=== PATIENT | female | born 1965 | race Caucasian/White ===

== ENCOUNTER 2023-08-23 16:55 | Emergency (ER) | payer SELFPAY ==
[2023-08-23 16:59] VITALS: BP 133/83; PULSE 98; RESP 18; TEMP 36.7; O2SAT 98; BMI 21.2
--- NOTE | 2023-08-23 17:24 | XRR_ITS ---
PROCEDURE INFORMATION: Exam: XR Abdomen Exam date and time: 08/23/2023 5:26 PM Age: 57 years old Clinical indication: Abdominal pain; Patient HX: Rlq pain; Constipation; Additional info: Abd paipn TECHNIQUE: Imaging protocol: Radiologic exam of the abdomen. Views: Frontal supine view of the abdomen. 1 View. COMPARISON: No relevant prior studies available. FINDINGS: Gastrointestinal tract: There is a moderate amount of stool mostly in the descending colon. No impaction. No bowel dilation. No ileus or obstruction Bones/joints: Unremarkable. XR/XR KUB portable [id number] IMPRESSION: No acute findings. Moderate constipation.
--- NOTE | 2023-08-23 17:26 | W.ED.ABDPA2 ---
Documented by User: Janes Stern DO 08/24/23 08:50 HPI - Abdominal Pain General: Chief Complaint: Abdominal Pain Stated Complaint: sent by UC, possible appy Time Seen by Provider: 08/23/23 17:24 Source: patient Mode of arrival: ambulatory History of Present Illness: 57-year-old female presents emergency room complaining of right lower quadrant pain for the last 2 weeks. She has some mild dysuria at times. She also has noted that the symptoms are relieved by flatulence. No fever sweats or chills. Earlier in the process she had some dysuria as she took Azo which she says it seemed as resolved. She has noted that she has been somewhat constipated. MD elicited complaint: abdominal pain Pertinent past history: constipation and other (Abdominal pain) Onset (ago): week(s) (2) Location: RLQ Severity: mild Quality: cramping Radiation: none Exacerbating factors: nothing Relieving factors: other (Flatulence) Associated Symptoms: Reports bloating, constipation, GI cramping, excessive flatus, nausea and poor appetite; Denies chills, dysuria, fever(s), hematochezia, hematuria, hematemesis, melena and vomiting Review of Systems Const: Denies: fever(s) or chills Card: Denies: chest pain Resp: Denies: dyspnea GI: Reports: nausea, constipation, bloating, GI cramping and excessive flatus; Denies: abdominal pain, vomiting, hematemesis, hematochezia or melena : Denies: dysuria, urinary frequency, urinary urgency or hematuria Musc: Denies: neck pain or back pain Skin/Breast: Denies: pruritus Neuro: Denies: headache(s) Physical Exam Const: GENERAL APPEARANCE: cooperative and comfortable ORIENTATION/CONSCIOUSNESS: Yes awake, Yes oriented to person, Yes oriented to place and Yes oriented to time HENMT: COMMON NORMALS: normocephalic, atraumatic and hearing grossly normal bilaterally HEAD & SCALP: normocephalic and atraumatic Resp: COMMON NORMALS: normal respiratory effort, No retractions, No use of accessory muscles and clear to auscultation bilaterally AUSCULTATION: clear to auscultation bilaterally Cardio: COMMON NORMALS: regular rate, regular rhythm and No murmurs present (Cardio) RATE: regular rate RHYTHM: regular rhythm GI: COMMON NORMALS: No hepatosplenomegaly present AUSCULTATION: Yes normoactive bowel sounds PALPATION: Yes Tenderness to palpation present (GI) (Diffusely tender lower abdomen more prominent in the right lower quadrant ), No Guarding due to palpation present (GI) and Yes No hepatosplenomegaly present Extremity: COMMON NORMALS: normal to inspection, capillary refill normal, no clubbing, cyanosis or edema, no calf tenderness and no pedal edema Neuro: SENSORIUM/ORIENTATION: Yes oriented to person, Yes oriented to place and Yes oriented to time Skin: COMMON NORMALS: no rashes or lesions noted GENERAL SKIN EXAM: no rashes or lesions noted Course Vital Signs: Vital signs: Vital Signs Temperature 98.7 F 08/23/23 19:09 Pulse Rate 80 08/23/23 19:09 Respiratory Rate 15 08/23/23 19:09 Blood Pressure 146/85 08/23/23 19:09 Pulse Oximetry 90 08/23/23 19:09 Oxygen Delivery Me thod Room Air 08/23/23 19:09 MDM - Abdominal Pain Medical Decision Making Diffuse tenderness right lower quadrant no peritoneal signs. KUB shows large amount of retained stool and increased gas in the colon but no signs of bowel obstruction. However patient does have leukocytosis. CT abdomen pelvis ordered. CMP is pending UA did not show any definitive cystitis. Care signed out to Dr. Patterson at change of shift. See final notes for diagnosis and disposition. Lab Data 08/23/23 17:40 08/23/23 17:40 Labs/Radiology: Radiology Impressions KUB X-Ray 08/23/23 17:24 IMPRESSION: No acute findings. Moderate constipation. Abdomen/Pelvis CT 08/23/23 18:06 IMPRESSION: Large soft tissue density masslike lesion in the right pelvis at least partially composed of matted/conglomerate loops of small bowel with induration of the adjacent fat. Unremarkable appendix. Right ovary is not definitely visualized. Differential diagnosis for this appearance could include inflammatory bowel disease or tubo-ovarian abscess. Given the masslike appearance and non visualization of the right ovary, ovarian mass or torsion cannot be excluded. Pelvic ultrasound with Doppler is recommended to evaluate the right ovary and exclude torsion. Additional CT scan with IV and oral contrast is recommended to further evaluate the loops of bowel. ADDENDUM: 10/07/23 1927 THIS REPORT CONTAINS FINDINGS THAT MAY BE CRITICAL TO PATIENT CARE. The findings were verbally communicated via telephone conference with Dr. Patterson at 7:25 PM CDT on 08/23/2023. The findings were acknowledged and understood. Transvaginal US 08/23/23 19:25 IMPRESSION: 1. Incomplete examination as patient in severe pain and unable to tolerate examination. 2. Heterogeneous right adnexal region measuring up to 6.3 cm without significant internal vascularity, of unclear origin. This lesion abuts the uterus but does not definitely arise from the uterus. 3. Right ovary not visualized, unclear if the ovary is obscured by the above lesion or if the above lesion arises from the right ovary. Tubo-ovarian abscess or ovarian torsion can not be excluded as previously mentioned on the CT abdomen/pelvis report from earlier today. 4. Recommend repeat CT abdomen and pelvis with intravenous and oral contrast to better assess relationship of this lesion to the uterus and bowel. ADDENDUM: 08/23/232219 THIS REPORT CONTAINS FINDINGS THAT MAY BE CRITICAL TO PATIENT CARE. The findings were verbally communicated via telephone conference with SEAN Saucedo at 10:19 PM CDT on 08/23/2023. The findings were acknowledged and understood. Laboratory Results WBC 16.33 10^3/uL (3.29-11.43) H 08/23/23 17:40 RBC 4.23 10^6/uL (3.85-5.65) 08/23/23 17:40 Hgb 12.90 g/dL (11.27-16.99) 08/23/23 17:40 Hct 39.6 % (36-47) 08/23/23 17:40 MCV 93.6 fl (85-98) 08/23/23 17:40 MCH 30.5 pg (27-33) 08/23/23 17:40 MCHC 32.6 g/dL (30-55) 08/23/23 17:40 RDW 13.2 % (12.1-15.1) 08/23/23 17:40 Plt Count 478 10^3/cmm (157-399) H 08/23/23 17:40 MPV 9.3 fL (7.4-10.4) 08/23/23 17:40 Neut % (Auto) 80.0 % 08/23/23 17:40 Lymph % (Auto) 10.2 % 08/23/23 17:40 Ralls % (Auto) 7.7 % 08/23/23 17:40 Eos % (Auto) 0.8 % 08/23/23 17:40 Baso % (Auto) 0.4 % 08/23/23 17:40 Neut # (Auto) 13.09 10^3/uL (1.8-7.7) H 08/23/23 17:40 Lymph # (Auto) 1.7 10^3/uL (0.8-4.8) 08/23/23 17:40 Ralls # (Auto) 1.3 10^3/uL (0.2-0.9) H 08/23/23 17:40 Eos # (Auto) 0.1 10^3/uL (0.0-0.8) 08/23/23 17:40 Baso # (Auto) 0.1 10^3/uL (0.0-0.1) 08/23/23 17:40 Nucleated RBC % (auto) 0 % 08/23/23 17:40 Nucleated RBCs # 0.0 /100WBC 08/23/23 17:40 Sodium 137 mmol/L (136-145) 08/23/23 17:40 Potassium 4.2 mmol/L (3.5-5.1) 08/23/23 17:40 Chloride 96 mmol/L (98-107) L 08/23/23 17:40 Carbon Dioxide 29 mmol/L (22-29) 08/23/23 17:40 Anion Gap 16.2 (5-19) 08/23/23 17:40 BUN 11 mg/dL (6-20) 08/23/23 17:40 Creatinine 0.6 mg/dL (0.5-0.9) 08/23/23 17:40 GFR Calculation 103.4 mL/min (90-130) 08/23/23 17:40 Glucose 111 mg/dL (65-115) 08/23/23 17:40 Calculated Osmolality 284 mOsm/kg (285-295) L 08/23/23 17:40 Calcium 9.5 mg/dL (8.5-10.5) 08/23/23 17:40 Total Bilirubin 0.3 mg/dL (0.15-1.2) 08/23/23 17:40 AST 25 U/L (0-32) 08/23/23 17:40 ALT 47 U/L (0-33) H 08/23/23 17:40 Alkaline Phosphatase 153 U/L (35-105) H 08/23/23 17:40 Total Protein 7.6 g/dL (6.6-8.7) 08/23/23 17:40 Albumin 3.8 g/dL (3.5-5.2) 08/23/23 17:40 Globulin 3.8 g/dL (1.3-4.6) 08/23/23 17:40 Urine Color Yellow (Yellow) 08/23/23 18:10 Urine Appearance Clear (CLEAR) 08/23/23 18:10 Urine pH 7 (5-7) 08/23/23 18:10 Ur Specific [place] 1.015 (1.005-1.030) 08/23/23 18:10 Urine Protein Neg (Negative) 08/23/23 18:10 Urine Glucose (UA) Norm (Normal) 08/23/23 18:10 Urine Ketones Negative (Negative) 08/23/23 18:10 Urine Blood Neg (Negative) 08/23/23 18:10 Urine Nitrate Negative (Negative) 08/23/23 18:10 Urine Bilirubin Neg (Negative) 08/23/23 18:10 Urine Urobilinogen 1 mg/dL (Negative) H 08/23/23 18:10 Ur Leukocyte Esterase Trace (Negative) H 08/23/23 18:10 Urine RBC None /hpf (0-2) 08/23/23 18:10 Urine WBC 0-4 /hpf (0-5) H 08/23/23 18:10 Ur Squamous Epith Cells 0-4 /hpf (0-5) H 08/23/23 18:10 Amorphous Sediment 3+ /hpf 08/23/23 18:10 Urine Bacteria None /hpf (NONE) 08/23/23 18:10 Discharge Plan Discharge Patient Disposition: Left Against Medical Advice Clinical Impression: Abdominal or pelvic swelling, mass, or lump, right lower quadrant Condition: Stable Prescriptions: No Action losartan 25 mg tablet 25 mg PO QAM zinc acetate 50 mg (zinc) Capsule 50 mg PO DAILY levothyroxine 100 mcg tablet 100 mcg PO QAM Vitamin C 500 mg Tablet 500 mg PO DAILY simvastatin 20 mg tablet 20 mg PO QAM hydroxyzine HCl 25 mg tablet 25 - 50 mg PO Q6H PRN (Reason: Itching) BC Pain Relief 845-65 mg Powder In Packet 1 ea PO TID PRN (Reason: Pain) Coding Level of Care Code 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 KUB shows large amount of retained stool and increased gas in the colon but no signs of bowel obstruction. However patient does have leukocytosis. CT abdomen pelvis ordered. CMP is pending UA did not show any definitive cystitis. Care signed out to Dr. Patterson at change of shift. See final notes for diagnosis and disposition. Patient checked out to me by Dr. Stern at shift change. The patient had refused IV, so CT was done without contrast. It shows a large soft tissue density mass in the right pelvis. Because IV contrast was not used, nor oral contrast, difficult to discern whether this is all small bowel or involves the ovary. Ultrasound of the pelvis was suggested. Ultrasound of the pelvis revealed right adnexal region 6.3 cm mass, which could be small bowel, but the right ovary is not visualized possibly due to being obscured by the mass. I went to speak with the patient about an IV for both pain medication, and IV contrast, told her the gravity of her situation, and that she would likely need admission and surgical consult after a CT with oral and IV contrast was completed. She is concerned about her dog who is diabetic, and under the care of her mother who does not know how to administer insulin. She elected to sign out AMA. She is awake, alert, and aware of the consequences of going home without completing her treatment. She states that she will return to the emergency department after taking care of her dog for further treatment. Lab Data 08/23/23 17:40 08/23/23 17:40 Labs/Radiology: Radiology Impressions KUB X-Ray 08/23/23 17:24 IMPRESSION: No acute findings. Moderate constipation. Abdomen/Pelvis CT 08/23/23 18:06 IMPRESSION: Large soft tissue density masslike lesion in the right pelvis at least partially composed of matted/conglomerate loops of small bowel with induration of the adjacent fat. Unremarkable appendix. Right ovary is not definitely visualized. Differential diagnosis for this appearance could include inflammatory bowel disease or tubo-ovarian abscess. Given the masslike appearance and non visualization of the right ovary, ovarian mass or torsion cannot be excluded. Pelvic ultrasound with Doppler is recommended to evaluate the right ovary and exclude torsion. Additional CT scan with IV and oral contrast is recommended to further evaluate the loops of bowel. ADDENDUM: 08/23/231926 THIS REPORT CONTAINS FINDINGS THAT MAY BE CRITICAL TO PATIENT CARE. The findings were verbally communicated via telephone conference with Dr. Patterson at 7:25 PM CDT on 08/23/2023. The findings were acknowledged and understood. Transvaginal US 08/23/23 19:25 IMPRESSION: 1. Incomplete examination as patient in severe pain and unable to tolerate examination. 2. Heterogeneous right adnexal region measuring up to 6.3 cm without significant internal vascularity, of unclear origin. This lesion abuts the uterus but does not definitely arise from the uterus. 3. Right ovary not visualized, unclear if the ovary is obscured by the above lesion or if the above lesion arises from the right ovary. Tubo-ovarian abscess or ovarian torsion can not be excluded as previously mentioned on the CT abdomen/pelvis report from earlier today. 4. Recommend repeat CT abdomen and pelvis with intravenous and oral contrast to better assess relationship of this lesion to the uterus and bowel. ADDENDUM: 08/23/230 THIS REPORT CONTAINS FINDINGS THAT MAY BE CRITICAL TO PATIENT CARE. The findings were verbally communicated via telephone conference with SEAN Saucedo at 10:19 PM CDT on 08/23/2023. The findings were acknowledged and understood. Laboratory Results WBC 16.33 10^3/uL (3.29-11.43) H 08/23/23 17:40 RBC 4.23 10^6/uL (3.85-5.65) 08/23/23 17:40 Hgb 12.90 g/dL (11.27-16.99) 08/23/23 17:40 Hct 39.6 % (36-47) 08/23/23 17:40 MCV 93.6 fl (85-98) 08/23/23 17:40 MCH 30.5 pg (27-33) 08/23/23 17:40 MCHC 32.6 g/dL (30-55) 08/23/23 17:40 RDW 13.2 % (12.1-15.1) 08/23/23 17:40 Plt Count 478 10^3/cmm (157-399) H 08/23/23 17:40 MPV 9.3 fL (7.4-10.4) 08/23/23 17:40 Neut % (Auto) 80.0 % 08/23/23 17:40 Lymph % (Auto) 10.2 % 08/23/23 17:40 Ralls % (Auto) 7.7 % 08/23/23 17:40 Eos % (Auto) 0.8 % 08/23/23 17:40 Baso % (Auto) 0.4 % 08/23/23 17:40 Neut # (Auto) 13.09 10^3/uL (1.8-7.7) H 08/23/23 17:40 Lymph # (Auto) 1.7 10^3/uL (0.8-4.8) 08/23/23 17:40 Ralls # (Auto) 1.3 10^3/uL (0.2-0.9) H 08/23/23 17:40 Eos # (Auto) 0.1 10^3/uL (0.0-0.8) 08/23/23 17:40 Baso # (Auto) 0.1 10^3/uL (0.0-0.1) 08/23/23 17:40 Nucleated RBC % (auto) 0 % 08/23/23 17:40 Nucleated RBCs # 0.0 /100WBC 08/23/23 17:40 Sodium 137 mmol/L (136-145) 08/23/23 17:40 Potassium 4.2 mmol/L (3.5-5.1) 08/23/23 17:40 Chloride 96 mmol/L (98-107) L 08/23/23 17:40 Carbon Dioxide 29 mmol/L (22-29) 08/23/23 17:40 Anion Gap 16.2 (5-19) 08/23/23 17:40 BUN 11 mg/dL (6-20) 08/23/23 17:40 Creatinine 0.6 mg/dL (0.5-0.9) 08/23/23 17:40 GFR Calculation 103.4 mL/min (90-130) 08/23/23 17:40 Glucose 111 mg/dL (65-115) 08/23/23 17:40 Calculated Osmolality 284 mOsm/kg (285-295) L 08/23/23 17:40 Calcium 9.5 mg/dL (8.5-10.5) 08/23/23 17:40 Total Bilirubin 0.3 mg/dL (0.15-1.2) 08/23/23 17:40 AST 25 U/L (0-32) 08/23/23 17:40 ALT 47 U/L (0-33) H 08/23/23 17:40 Alkaline Phosphatase 153 U/L (35-105) H 08/23/23 17:40 Total Protein 7.6 g/dL (6.6-8.7) 08/23/23 17:40 Albumin 3.8 g/dL (3.5-5.2) 08/23/23 17:40 Globulin 3.8 g/dL (1.3-4.6) 08/23/23 17:40 Urine Color Yellow (Yellow) 08/23/23 18:10 Urine Appearance Clear (CLEAR) 08/23/23 18:10 Urine pH 7 (5-7) 08/23/23 18:10 Ur Specific [place] 1.015 (1.005-1.030) 08/23/23 18:10 Urine Protein Neg (Negative) 08/23/23 18:10 Urine Glucose (UA) Norm (Normal) 08/23/23 18:10 Urine Ketones Negative (Negative) 08/23/23 18:10 Urine Blood Neg (Negative) 08/23/23 18:10 Urine Nitrate Negative (Negative) 08/23/23 18:10 Urine Bilirubin Neg (Negative) 08/23/23 18:10 Urine Urobilinogen 1 mg/dL (Negative) H 08/23/23 18:10 Ur Leukocyte Esterase Trace (Negative) H 08/23/23 18:10 Urine RBC None /hpf (0-2) 08/23/23 18:10 Urine WBC 0-4 /hpf (0-5) H 08/23/23 18:10 Ur Squamous Epith Cells 0-4 /hpf (0-5) H 08/23/23 18:10 Amorphous Sediment 3+ /hpf 08/23/23 18:10 Urine Bacteria None /hpf (NONE) 08/23/23 18:10 All radiology interpretation(s) finalized by discharge Discharge Plan Discharge Patient Disposition: Left Against Medical Advice Clinical Impression: Abdominal or pelvic swelling, mass, or lump, right lower quadrant Condition: Stable Prescriptions: No Action losartan 25 mg tablet 25 mg PO QAM zinc acetate 50 mg (zinc) Capsule 50 mg PO DAILY levothyroxine 100 mcg tablet 100 mcg PO QAM Vitamin C 500 mg Tablet 500 mg PO DAILY simvastatin 20 mg tablet 20 mg PO QAM hydroxyzine HCl 25 mg tablet 25 - 50 mg PO Q6H PRN (Reason: Itching) BC Pain Relief 845-65 mg Powder In Packet 1 ea PO TID PRN (Reason: Pain) Coding Level of Care Code ED Treating Plant Supervisor for Chg Moses
[2023-08-23 17:46] LABS: Basophils # 0.1 10^3/uL (0.0-0.1); Basophils % 0.4 %; Eosinophils # 0.1 10^3/uL (0.0-0.8); Eosinophils % 0.8 %; Hematocrit 39.6 % (36-47); Lymphocytes # 1.7 10^3/uL (0.8-4.8); Lymphocytes % 10.2 %; Mean Corpuscular HGB Conc 32.6 g/dL (30-55); Mean Corpuscular Hemoglobin 30.5 pg (27-33); Mean Corpuscular Volume 93.6 fl (85-98); Mean Platelet Volume 9.3 fL (7.4-10.4); Monocytes # 1.3 10^3/uL (0.2-0.9); Monocytes % 7.7 %; Neutrophils # 13.09 10^3/uL (1.8-7.7); Nucleated Red Blood Cells % 0 %; Platelet Count 478 10^3/cmm (157-399); Red Blood Count 4.23 10^6/uL (3.85-5.65); Red Cell Distribution Width 13.2 % (12.1-15.1); White Blood Count 16.33 10^3/uL (3.29-11.43)
[2023-08-23 18:02] VITALS: BP 154/92; PULSE 86; O2SAT 96
--- NOTE | 2023-08-23 18:06 | CTR_ITS ---
PROCEDURE INFORMATION: Exam: CT Abdomen And Pelvis Without Contrast Exam date and time: 08/23/2023 6:42 PM Age: 57 years old Clinical indication: Abdominal pain; Generalized; Additional info: Abdominal pain/leukocytosis TECHNIQUE: Imaging protocol: Computed tomography of the abdomen and pelvis without contrast. Radiation optimization: All CT scans at this facility use at least one of these dose optimization techniques: automated exposure control; mA and/or kV adjustment per patient size (includes targeted exams where dose is matched to clinical indication); or iterative reconstruction. REPORTING DATA: Count of CT and Cardiac NM exams in prior 12 months: This patient has received 0 known CTs and 0 known cardiac nuclear medicine studies in the 12 months prior to the current study. COMPARISON: CR (ABDOMEN, ) 08/23/2023 5:26 PM RADIATION DOSE METRICS: Total DLP (mGy-cm): 385.17 FINDINGS: Liver: Unremarkable.No mass. Gallbladder and bile ducts: Normal. No calcified stones. No ductal dilation. Pancreas: The pancreas is normal. Spleen: The spleen is normal. Adrenal glands: The adrenal glands are normal. Kidneys and ureters: There is no evidence of hydronephrosis. There is no evidence of renal calcifications. Stomach and bowel: There is no evidence of intestinal perforation or obstruction. Moderate diverticulosis is present in the distal colon. There is no evidence of colitis/diverticulitis. There is moderately excessive colonic stool content. Some of this appearance does appear to be due to matted loops of bowel containing a few air bubbles the right ovary cannot be from this mass. Appendix: A normal appendix is identified. Intraperitoneal space: There is a mass like appearance in the right lower abdomen/pelvis measuring 10.0 x 7.0 x 6.3 cm with haziness/induration of the adjacent mesenteric fat. Vasculature: There are numerous benign phleboliths in the pelvis. Lymph nodes: Unremarkable.No enlarged lymph nodes. Urinary bladder: The bladder is normal. Reproductive: The uterus and left adnexa are unremarkable. There is a trace amount of fluid in the right adnexa and pelvis. Bones/joints: Unremarkable. No acute fracture. Soft tissues: There is a fat-containing umbilical hernia. CT/CT abdomen pelvis wo con [id number] IMPRESSION: Large soft tissue density masslike lesion in the right pelvis at least partially composed of matted/conglomerate loops of small bowel with induration of the adjacent fat. Unremarkable appendix. Right ovary is not definitely visualized. Differential diagnosis for this appearance could include inflammatory bowel disease or tubo-ovarian abscess. Given the masslike appearance and non visualization of the right ovary, ovarian mass or torsion cannot be excluded. Pelvic ultrasound with Doppler is recommended to evaluate the right ovary and exclude torsion. Additional CT scan with IV and oral contrast is recommended to further evaluate the loops of bowel.
[2023-08-23 18:08] LABS: Alanine Aminotransferase 47 U/L (0-33); Albumin Level 3.8 g/dL (3.5-5.2); Alkaline Phosphatase 153 U/L (35-105); Anion Gap 16.2 (5-19); Aspartate Amino Transferase 25 U/L (0-32); Blood Urea Nitrogen 11 mg/dL (6-20); Calcium 9.5 mg/dL (8.5-10.5); Carbon Dioxide 29 mmol/L (22-29); Chloride 96 mmol/L (98-107); Globulin 3.8 g/dL (1.3-4.6); Glomerular Filtration Rate 103.4 mL/min (90-130); Glucose 111 mg/dL (65-115); Osmolality Calculated 284 mOsm/kg (285-295); Potassium 4.2 mmol/L (3.5-5.1); Sodium 137 mmol/L (136-145); Total Bilirubin 0.3 mg/dL (0.15-1.2); Total Protein 7.6 g/dL (6.6-8.7)
[2023-08-23 18:55] VITALS: BP 154/92; PULSE 91; O2SAT 96
--- NOTE | 2023-08-23 18:55 | PC.NURSE ---
Report taken from LIZBETH Barros at this time.
[2023-08-23 19:02] LABS: Urine Appearance Clear (CLEAR); Urine Color Yellow (Yellow)
[2023-08-23 19:03] LABS: Add Urine Culture? No; Add Urine Microscopic? YES; Amorphous Sediment Urine 3+ /hpf; Bilirubin Urine Neg (Negative); Blood Urine Neg (Negative); Glucose Urine UA Norm (Normal); Ketones Urine Negative (Negative); Leukocyte Esterase Urine Trace (Negative); Nitrate Urine Negative (Negative); Protein Urine Neg (Negative); Specific Gravity, Urine 1.015 (1.005-1.030); Squamous Epithelial Cell Urine 0-4 /hpf (0-5); Urobilinogen Urine 1 mg/dL (Negative); WBC Urine 0-4 /hpf (0-5); pH Urine 7 (5-7)
[2023-08-23 19:09] VITALS: BP 146/85; PULSE 80; RESP 15; TEMP 37.1; O2SAT 90
--- NOTE | 2023-08-23 19:25 | USR_ITS ---
PROCEDURE INFORMATION: Exam: US Pelvis, Transvaginal Exam date and time: 08/23/2023 8:42 PM Age: 57 years old Clinical indication: Pelvic pain; Additional info: Rlq pain. TECHNIQUE: Imaging protocol: Real-time transvaginal pelvic ultrasound with image documentation. Transvaginal imaging was used for better evaluation of the endometrium, adnexa, and/or cervix. COMPARISON: CT abdomen pelvis wo con [id number] 08/23/2023 6:42 PM FINDINGS: Uterus: Trace fluid in the endometrial canal. Right ovary/adnexa: Heterogeneous right adnexal region measuring 6.3 x 5 x 4.2 cm without significant internal vascularity. Right ovary not visualized. Left ovary/adnexa: Not examined Intraperitoneal space: Not fully examined. US/US transvaginal [id number] IMPRESSION: 1. Incomplete examination as patient in severe pain and unable to tolerate examination. 2. Heterogeneous right adnexal region measuring up to 6.3 cm without significant internal vascularity, of unclear origin. This lesion abuts the uterus but does not definitely arise from the uterus. 3. Right ovary not visualized, unclear if the ovary is obscured by the above lesion or if the above lesion arises from the right ovary. Tubo-ovarian abscess or ovarian torsion can not be excluded as previously mentioned on the CT abdomen/pelvis report from earlier today. 4. Recommend repeat CT abdomen and pelvis with intravenous and oral contrast to better assess relationship of this lesion to the uterus and bowel.
[2023-08-23] MEDS: acetaminophen 500 mg Tablet 1000 MG PO (20:27)
--- NOTE | 2023-08-23 20:34 | PC.NURSE ---
Patient had refused IV and IV pain meds. Stated that she wanted Tylenol PO instead. Tylenol was listed as an allergy, which patient verified that was incorrect. Dr Patterson was notified and gave this nurse verbal orders to put in 1000mg Tylenol PO once. Orders were put in.
--- NOTE | 2023-08-23 22:18 | PC.NURSE ---
Patient signed out AMA, signed paperwork. Dr Patterson notified. Patient states that she has to leave to give her dog insulin, as her mother is unable to administer insulin. Patient plans on returning to ER once insulin has been administered to her dog, and plans to return with the agreement that she will get an IV in order to perform more tests and labs. Patient was agreeable and Dr Patterson was informed.
== END 2023-08-23 23:47 | disposition left against medical advice (07) ==
PROVIDERS: Family Medicine; Emergency Provider Emergency Medicine
DX: R10.31 Right lower quadrant pain (principal); R19.00 Intra-abdominal and pelvic swelling, mass and lump, unspecified site; Z53.21 Procedure and treatment not carried out due to patient leaving prior to being seen by health care provider
CPT/HCPCS: 36415; 74018; 74176; 76830; 80053; 81000; 81001; 85025; 87086; 99285

== ENCOUNTER 2023-08-24 07:41 | Emergency (ER) | payer SELFPAY ==
[2023-08-24] VITALS (8 sets, daily range): BP systolic 110–144; BP diastolic 70–91; PULSE 78–97; RESP 16–18; TEMP 36.4–36.6; O2SAT 97–98; BMI 21.2
--- NOTE | 2023-08-24 07:57 | CTR_ITS ---
PROCEDURE INFORMATION: Exam: CT Abdomen And Pelvis With Contrast Exam date and time: 08/24/2023 8:41 AM Age: 57 years old Clinical indication: Right lower quadrant abdominal pain. TECHNIQUE: Imaging protocol: Computed tomography of the abdomen and pelvis with contrast. Radiation optimization: All CT scans at this facility use at least one of these dose optimization techniques: automated exposure control; mA and/or kV adjustment per patient size (includes targeted exams where dose is matched to clinical indication); or iterative reconstruction. Contrast material: OMNI 350; Contrast volume: 100 ml; Contrast route: INTRAVENOUS (IV); REPORTING DATA: Count of CT and Cardiac NM exams in prior 12 months: This patient has received [address] and 0 known cardiac nuclear medicine studies in the 12 months prior to the current study. COMPARISON: CT abdomen pelvis wo con [id number] 08/23/2023 6:42 PM RADIATION DOSE METRICS: Total DLP (mGy-cm): 431.09 FINDINGS: Lungs: Fissural micronodule on the right measuring 2.9 mm (image 1). Pulmonary micronodule in the right middle lobe measuring 2 mm (image 8). Solid pulmonary nodule in the right lower lobe measuring 3.2 mm (image 7). Mild scarring or atelectasis at the lung bases. Coronary arteries: Coronary arterial calcifications are seen. Diaphragm: No hiatal hernia. Liver: The liver is enlarged measuring 20.1 cm. Gallbladder and bile ducts: The gallbladder is unremarkable. Pancreas: The pancreas is unremarkable. Spleen: The spleen is unremarkable. Adrenal glands: The adrenal glands are unremarkable. Kidneys and ureters: Subcentimeter renal hypodensities are too small to accurately characterize and require no follow-up. No hydronephrosis. Stomach and bowel: The stomach and small bowel are unremarkable. Colonic diverticulosis is noted. There is a multiseptated structure in the pelvis that appears to arise from the sigmoid colon. This structure contains gas and fluid and measures 6.9 x 9.0 x 7.1 cm. There is wall thickening of the adjacent colon, and there is edema adjacent to the structure. Considerations include colitis/diverticulitis with intramural abscess. This could reflect an adnexal mass invading the colon with associated fistula. A giant diverticulum/diverticulitis is a consideration. Appendix: The appendix is not identified. Intraperitoneal space: No free intraperitoneal air is seen. Vasculature: No abdominal aortic aneurysm. Lymph nodes: No retroperitoneal lymphadenopathy. Urinary bladder: The bladder is largely decompressed. Reproductive: The uterus is grossly unremarkable. Bones/joints: No acute fracture is seen. Soft tissues: Small fat containing umbilical hernia. CT/CT abdomen pelvis w con* [id number] IMPRESSION: 1. Multiseptated structure in the pelvis that appears to arise from the sigmoid colon. This structure contains gas and fluid and measures 6.9 x 9.0 x 7.1 cm. There is wall thickening of the adjacent colon, and there is edema adjacent to the structure. Considerations include colitis/diverticulitis with intramural abscess. This could reflect an adnexal mass invading the colon with associated fistula. A giant diverticulum/diverticulitis is a consideration. No perforation. 2. Pulmonary nodules measuring up to 3.2 mm. As per Fleischner Society 2017 guidelines for follow-up and management of pulmonary nodules: For patients at low risk (minimal or absent history of smoking and of other known risk factors), no routine follow-up. For patient at high risk (history of smoking or of other known risk factors), recommend optional CT at 12 months. 3. Hepatomegaly. COMMENTS: Consistent with the [employer]'s Incidental Findings Committee white paper (J Am Juana Radiol 2018): Any incidental renal lesion less than 1 cm or classified as too small to characterize, or any incidental cystic renal lesion characterized as simple-appearing, is likely benign. No follow-up imaging is recommended for these lesions per consensus recommendations based on imaging criteria.
[2023-08-24 08:20] LABS: Basophils # 0.1 10^3/uL (0.0-0.1); Basophils % 0.4 %; Eosinophils # 0.2 10^3/uL (0.0-0.8); Hematocrit 38.3 % (36-47); Lymphocytes # 1.2 10^3/uL (0.8-4.8); Lymphocytes % 6.4 %; Mean Corpuscular HGB Conc 32.4 g/dL (30-55); Mean Corpuscular Hemoglobin 30.8 pg (27-33); Mean Platelet Volume 9.3 fL (7.4-10.4); Monocytes % 5.4 %; Neutrophils # 15.63 10^3/uL (1.8-7.7); Neutrophils % 86.1 %; Nucleated Red Blood Cells % 0 %; Platelet Count 368 10^3/cmm (157-399); Red Blood Count 4.03 10^6/uL (3.85-5.65); Red Cell Distribution Width 13.3 % (12.1-15.1); White Blood Count 18.17 10^3/uL (3.29-11.43)
--- NOTE | 2023-08-24 08:22 | ED_ITS ---
HPI - Abdominal Pain General: Chief Complaint: Abdominal Pain Stated Complaint: low abd pain Time Seen by Provider: 08/24/23 07:44 Source: patient Mode of arrival: ambulatory History of Present Illness: 57-year-old female presents emergency room complaining of abdominal pain and cramping. She has had this for several weeks and seen the patient last night and had handed her off to Dr. Patterson. She was noted to have leukocytosis and had significant pain in the right lower quadrant. Initially we had ordered a KUB did show some constipation and increased gas. Given the leukocytosis CT was ordered CT showed a mass in the right lower quadrant but it was without contrast difficult to isolate if it was ovarian or from the small bowel. Dr. Patterson had tried to encourage the patient to allow further work-up including a CT with co ntrast after she had declined a transvaginal ultrasound and of the pelvic transabdominal ultrasound did not isolate the source of the mass. Patient refused and left she felt she had other issues she needed to attend to and said she would return later. She returns now this morning her symptoms for the most part remain unchanged she still having difficulty with bowel and bladder she has not had any fevers still complaining of intermittent pain in the right lower quadrant. MD elicited complaint: abdominal pain Pertinent past history: other (Right lower quadrant mass see previous imaging studies) Onset (ago): week(s) (3) Pain Consistency: constant Location: RLQ Severity: moderate Quality: cramping Radiation: none Exacerbating factors: nothing Relieving factors: other (Flatulence) Associated Symptoms: Reports anorexia, bloating, change in bowel habits, constipation, GI cramping, excessive flatus, nausea and poor appetite; Denies belching, change in stool character, chills, coffee ground emesis, diarrhea, dyspepsia, dysuria, fever(s), heartburn, hematochezia, hematuria, hematemesis, fecal incontinence, loose stools, melena, syncope, vomiting and other Review of Systems Const: Denies: fever(s) or chills Card: Denies: syncope Resp: Denies: dyspnea GI: Reports: nausea, constipation, bloating, GI cramping, excessive flatus and change in bowel habits; Denies: vomiting, hematemesis, coffee ground emesis, heartburn, diarrhea, belching, fecal incontinence, change in stool character, hematochezia, melena or other : Denies: dysuria or hematuria Musc: Denies: neck pain or back pain Skin/Breast: Denies: pruritus Neuro: Denies: headache(s) Physical Exam Const: GENERAL APPEARANCE: cooperative and comfortable ORIENTATION/CONSCIOUSNESS: Yes awake, Yes oriented to person, Yes oriented to place and Yes oriented to time HENMT: COMMON NORMALS: normocephalic, atraumatic and hearing grossly normal bilaterally HEAD & SCALP: normocephalic and atraumatic Resp: COMMON NORMALS: normal respiratory effort, No retractions, No use of accessory muscles and clear to auscultation bilaterally AUSCULTATION: clear to auscultation bilaterally Cardio: COMMON NORMALS: regular rate, regular rhythm and No murmurs present (Cardio) RATE: regular rate RHYTHM: regular rhythm GI: COMMON NORMALS: No hepatosplenomegaly present AUSCULTATION: Yes normoactive bowel sounds PALPATION: Yes Tenderness to palpation present (GI) Details: RLQ, No Guarding due to palpation present (GI) and Yes No hepatosplenomegaly present Extremity: COMMON NORMALS: normal to inspection, capillary refill normal, no clubbing, cyanosis or edema, no calf tenderness and no pedal edema Neuro: SENSORIUM/ORIENTATION: Yes oriented to person, Yes oriented to place and Yes oriented to time Skin: COMMON NORMALS: no rashes or lesions noted GENERAL SKIN EXAM: no rashes or lesions noted Course Vital Signs: Vital signs: Vital Signs Temperature 98 F 08/24/23 10:00 Pulse Rate 79 08/24/23 11:30 Respiratory Rate 18 08/24/23 10:00 Blood Pressure 129/70 08/24/23 12:00 Pulse Oximetry 97 08/24/23 10:00 Oxygen Delivery Me thod Room Air 08/24/23 10:00 MDM - Abdominal Pain Medical Decision Making CT with contrast on there is still some question whether or not this is an ovarian mass that is visualized to the sigmoid colon versus sigmoid colon abscess abutting the right ovary. I asked Dr. Ovalles on-call for gynecology and Dr. Wing on-call for general surgery to evaluate the patient. After evaluating the patient's images and conferring they recommend transfer. Patient may need colorectal surgery and will likely need gynecologic oncology. Dr. Wing said it may potentially be treatable with interventional radiology with a drain. Reviewed with the patient she agrees to transfer we will transfer to [facility] they have excepted as a direct admission to the hospitalist service. Medical Records I reviewed the patient's medical records. Lab Data I reviewed the patient's lab results. 08/24/23 08:10 08/24/23 08:10 Labs/Radiology: Radiology Impressions Abdomen/Pelvis CT 08/24/23 07:57 IMPRESSION: 1. Multiseptated structure in the pelvis that appears to arise from the sigmoid colon. This structure contains gas and fluid and measures 6.9 x 9.0 x 7.1 cm. There is wall thickening of the adjacent colon, and there is edema adjacent to the structure. Considerations include colitis/diverticulitis with intramural abscess. This could reflect an adnexal mass invading the colon with associated fistula. A giant diverticulum/diverticulitis is a consideration. No perforation. 2. Pulmonary nodules measuring up to 3.2 mm. As per Fleischner Society 2017 guidelines for follow-up and management of pulmonary nodules: For patients at low risk (minimal or absent history of smoking and of other known risk factors), no routine follow-up. For patient at high risk (history of smoking or of other known risk factors), recommend optional CT at 12 months. 3. Hepatomegaly. COMMENTS: Consistent with the [employer]'s Incidental Findings Committee white paper (J Am Juana Radiol 2018): Any incidental renal lesion less than 1 cm or classified as too small to characterize, or any incidental cystic renal lesion characterized as simple-appearing, is likely benign. No follow-up imaging is recommended for these lesions per consensus recommendations based on imaging criteria. ADDENDUM: 08/24/23923 Findings relayed to CLIFFORD FRAGOSO who confirmed receipt of report at 08/24/2023 9:22 AM CDT. Laboratory Results WBC 18.17 10^3/uL (3.29-11.43) H 08/24/23 08:10 RBC 4.03 10^6/uL (3.85-5.65) 08/24/23 08:10 Hgb 12.40 g/dL (11.27-16.99) 08/24/23 08:10 Hct 38.3 % (36-47) 08/24/23 08:10 MCV 95.0 fl (85-98) 08/24/23 08:10 MCH 30.8 pg (27-33) 08/24/23 08:10 MCHC 32.4 g/dL (30-55) 08/24/23 08:10 RDW 13.3 % (12.1-15.1) 08/24/23 08:10 Plt Count 368 10^3/cmm (157-399) 08/24/23 08:10 MPV 9.3 fL (7.4-10.4) 08/24/23 08:10 Neut % (Auto) 86.1 % 08/24/23 08:10 Lymph % (Auto) 6.4 % 08/24/23 08:10 [place] % (Auto) 5.4 % 08/24/23 08:10 Eos % (Auto) 1.0 % 08/24/23 08:10 Baso % (Auto) 0.4 % 08/24/23 08:10 Neut # (Auto) 15.63 10^3/uL (1.8-7.7) H 08/24/23 08:10 Lymph # (Auto) 1.2 10^3/uL (0.8-4.8) 08/24/23 08:10 [place] # (Auto) 1.0 10^3/uL (0.2-0.9) H 08/24/23 08:10 Eos # (Auto) 0.2 10^3/uL (0.0-0.8) 08/24/23 08:10 Baso # (Auto) 0.1 10^3/uL (0.0-0.1) 08/24/23 08:10 Nucleated RBC % (auto) 0 % 08/24/23 08:10 Nucleated RBCs # 0.0 /100WBC 08/24/23 08:10 Sodium 137 mmol/L (136-145) 08/24/23 08:10 Potassium 3.5 mmol/L (3.5-5.1) 08/24/23 08:10 Chloride 101 mmol/L (98-107) 08/24/23 08:10 Carbon Dioxide 25 mmol/L (22-29) 08/24/23 08:10 Anion Gap 14.5 (5-19) 08/24/23 08:10 BUN 13 mg/dL (6-20) 08/24/23 08:10 Creatinine 0.7 mg/dL (0.5-0.9) 08/24/23 08:10 GFR Calculation 86.6 mL/min (90-130) L 08/24/23 08:10 Glucose 163 mg/dL (65-115) H 08/24/23 08:10 Calculated Osmolality 288 mOsm/kg (285-295) 08/24/23 08:10 Calcium 8.9 mg/dL (8.5-10.5) 08/24/23 08:10 Total Bilirubin 0.2 mg/dL (0.15-1.2) 08/24/23 08:10 AST 31 U/L (0-32) 08/24/23 08:10 ALT 46 U/L (0-33) H 08/24/23 08:10 Alkaline Phosphatase 157 U/L (35-105) H 08/24/23 08:10 Total Protein 7.0 g/dL (6.6-8.7) 08/24/23 08:10 Albumin 3.1 g/dL (3.5-5.2) L 08/24/23 08:10 Globulin 3.9 g/dL (1.3-4.6) 08/24/23 08:10 All radiology interpretation(s) finalized by discharge Discharge Plan Discharge Patient Disposition: Xfer Short-Term Hosp Clinical Impression: Pelvic abscess in female Condition: Stable Prescriptions: No Action losartan 25 mg tablet 25 mg PO QAM zinc acetate 50 mg (zinc) Capsule 50 mg PO DAILY levothyroxine 100 mcg tablet 100 mcg PO QAM Vitamin C 500 mg Tablet 500 mg PO DAILY simvastatin 20 mg tablet 20 mg PO QAM hydroxyzine HCl 25 mg tablet 25 - 50 mg PO Q6H PRN (Reason: Itching) BC Pain Relief 845-65 mg Powder In Packet 1 ea PO TID PRN (Reason: Pain) Referrals: Mauro Christine, TERRITORY OUTSIDE SALES MANAGER-C [Primary Care Provider] - Coding Level of Care Code ED Respiratory Scientist for Aminta Lopes
[2023-08-24 08:41] LABS: Alanine Aminotransferase 46 U/L (0-33); Albumin Level 3.1 g/dL (3.5-5.2); Alkaline Phosphatase 157 U/L (35-105); Anion Gap 14.5 (5-19); Aspartate Amino Transferase 31 U/L (0-32); Blood Urea Nitrogen 13 mg/dL (6-20); Calcium 8.9 mg/dL (8.5-10.5); Carbon Dioxide 25 mmol/L (22-29); Chloride 101 mmol/L (98-107); Globulin 3.9 g/dL (1.3-4.6); Glomerular Filtration Rate 86.6 mL/min (90-130); Glucose 163 mg/dL (65-115); Osmolality Calculated 288 mOsm/kg (285-295); Potassium 3.5 mmol/L (3.5-5.1); Sodium 137 mmol/L (136-145); Total Bilirubin 0.2 mg/dL (0.15-1.2)
[2023-08-24] MEDS: iohexol 350 mg/mL 500 mL Btl (per mL) IV (08:45)
--- NOTE | 2023-08-24 10:16 | P.CONIM_ITS ---
Providers/Reason For Consult Consulting Physician/Specialty*: General surgery Reason for Consult*: Large pelvic mass/abscess Primary Care Provider: HALEY Wilson History of Present Illness History of Present Illness Ashley Celeste is a 57 year old female who presents to the hospital complaining of 3 weeks of lower abdomen pain, it has worsened in the last 24 hours to a point that patient decided to present to the emergency department. Pain is about 8 out of 10 of intensity, it improves after releasing gas. It worsens with activity and movement. Patient was in the emergency department yesterday night at that time a CT scan of the abdomen and pelvis was done and show evidence of a complex mass in the pelvis, known origin it was not able to be identified if it was in an XL versus sigmoid mass. She had an transvaginal ultrasound which was unable to identify the right ovary. At that point was recommended that she gets a CT scan of the abdomen and pelvis with p.o. and IV contrast, patient had to leave the hospital for social reasons but presented this morning and the CT was done, CT shows a large complex fluid collection in the pelvis, is unclear if the origin is the sigmoid colon or the right adnexa, t here is inflammatory changes around this area. I was consulted for this finding. Review of Systems Narrative: 10 point review of systems was done and is negative otherwise noted in HPI. Medications/Allergies Home Medications Medication Instructions Recorded Confirmed Last Taken Type losartan 25 mg tablet 25 mg PO QAM 01/22/23 08/24/23 08/24/23 History ascorbic acid (vitamin C) 500 mg 500 mg PO DAILY 08/24/23 08/24/23 08/23/23 History tablet (Vitamin C) aspirin-caffeine 845 mg-65 mg oral 1 ea PO TID PRN Pain 08/24/23 08/24/23 08/24/23 06:00 History powder packet (BC Pain Relief) hydroxyzine HCl 25 mg tablet 25 - 50 mg PO Q6H PRN Itching 08/24/23 08/24/23 Unknown History levothyroxine 100 mcg tablet 100 mcg PO QAM 08/24/23 08/24/23 08/24/23 History simvastatin 20 mg tablet 20 mg PO QAM 08/24/23 08/24/23 08/24/23 History zinc acetate 50 mg (zinc) capsule 50 mg PO DAILY 08/24/23 08/24/23 08/23/23 History Allergies Allergy/AdvReac Type Severity Reaction Status Date / Time acetaminophen Allergy Unknown Verified 08/23/23 16:11 [From [facility] with Codeine] codeine Allergy Unknown Verified 08/23/23 16:11 [From [facility] with Codeine] Vitals/I&O/Wt Last Vital Signs Temp 97.9 F 08/24/23 07:45 Pulse 97 08/24/23 07:45 Resp 16 08/24/23 07:45 BP 144/91 08/24/23 07:45 Pulse Ox 98 08/24/23 07:45 O2 Del Method Room Air 08/24/23 07:45 Weight last 48 hrs Weight 140 lb Physical Exam Narrative: General : Patient is well developed , no acute distress, oriented x3 Head : Normal cephalic, a-traumatic. Nose : Mucous membranes are without erythema. Lungs : Equal chest rise bilaterally, no use of accessory muscles, trachea is midline. CV : Rate and rhythm are normal. Abdomen : Soft, ND,There is tenderness in the suprapubic area, remainder of the abdominal exams is benign Extremities : No edema. Upper extremities are normal bilaterally. Back : non-tender to palpation, no CVA tenderness. Data 08/24/23 08:10 08/24/23 08:10 A&P Assessment and plan (1) Abdominal or pelvic swelling, mass, or lump, right lower quadrant: (2) Pelvic abscess in female: Plan After complete history, physical examination and review of all available clinical data the following is my assessment. In my independent review of the CT scan of the abdomen and pelvis with contrast, there is a large complex fluid collection on the pelvics with measures about 7 cm in diameter, and negative unable to identify the origin of the collection, the differential can include a complicated diverticulitis versus a complex adnexal lesion. With available data I think lesion is most likely a complex abscess rather than a solid mass. This hypothesis is supported by the elevated white count, which has also increased in the last 24 hours from 16-18. My clinical recommendation at the time will be for patient to be referred to higher level of care for IR drainage of pelvic abscess, after drainage of the abscess anatomy could be delineated better to identify if there is any additional pathology that cause this fluid collection. My principal differential at the moment would be a complicated diverticulitis. I have also recommended patient to be started on IV antibiotics due to elevation in the white count. A ADMINISTRATIVE PROCESSOR evaluation is pending, as lesion could also be arising from the right ovary. In the case of confirmation of ADMINISTRATIVE PROCESSOR pathology causing this complex lesion and invading the surrounding sigmoid colon, referral to to higher level of care will also be beneficial to the patient in order to get a multidisciplinary approach and management of this complex medical condition. Patient is stable at the time of my evaluation, no contraindication for referral to higher level of care is identified. Coding Level of Care Code 00158 Diagnoses Abdominal or pelvic swelling, mass, or lump, right lower quadrant R19.03 Pelvic abscess in female N73.9
[2023-08-24] MEDS: piperacillin-tazobactam 3.375 GM in sodium chloride 0.9% (plus) 50 ML IV (10:36)
[2023-08-24] MEDS: ondansetron 2 mg/ML SDV 2 mL 4 MG IVP (15:12)
[2023-08-24] MEDS: morphine 4 mg/mL SDV 1 mL IVP (15:13)
--- NOTE | 2023-08-24 15:35 | ECG_ITS ---
[facility] Test Date: 2023-08-24 Pat Name: Ashley Celeste Department: Room: Gender: Female Tie Tamper: : 1965 Requested By: Janes Nunez Order Number: [id number] Vicente MD: Eh Brand M.D. Measurements Intervals [place] Rate: 88 P: 76 FL: 137 QRS: 80 QRSD: 89 T: 73 QT: 354 QTc: 429 Interpretive Statements SINUS RHYTHM No previous ECG available for comparison Electronically Signed On 08-24-2023 22:51:50 CDT by Eh Brand M.D. [id number]
[2023-08-24] MEDS: LORazepam 2 mg/mL INJ 1 mL IVP (15:38)
[2023-08-24] MEDS: diphenhydrAMINE 50 mg/mL SDV 1mL IVP (15:43)
--- NOTE | 2023-08-24 22:42 | PC.NURSE ---
pt refused 2 of Morphine waste of remained was destroyed and watched by LIZBETH Mcmanus.
== END 2023-08-24 15:52 | disposition short-term general hospital (02) ==
PROVIDERS: Emergency Provider Family Medicine; PCP Nurse Practitioner
DX: N73.9 Female pelvic inflammatory disease, unspecified (principal)
CPT/HCPCS: 36415; 74177; 80053; 85025; 87040; 93005; 96365; 96366; 96375; 99285; 99291; 99292; J1200; J2060; J2270; J2405; J2543; Q9967

== ENCOUNTER 2024-11-16 12:27 | Outpatient (CLI) | payer MEDICAID, SELFPAY ==
--- NOTE | 2024-11-16 12:48 | XR_ITS ---
WS: [id number] Left knee, 3 views, 11/16/2024 Clinical Data: BILATERAL KNEE PAIN Comparison: Left knee, 08/06/2018 Findings: No fractures or dislocations are seen. The joint spaces are normal. The patella is intact. The soft t issues are unremarkable. XR/XR knee LT 3V* [id number] Impression: Negative left knee. Kellgren-Nicolas Classification: grade 0 (none): definite absence of x-ray hung nges of osteoarthritis
--- NOTE | 2024-11-16 12:48 | XR_ITS ---
WS: [id number] Right knee, 3 views, 11/16/2024 Clinical Data: BILATERAL KNEE PAIN Comparison: None. Findings: No fractures or dislocations are seen. The joint spaces are normal. The patella is intact. The soft t issues are unremarkable. XR/XR knee RT 3V* [id number] Impression: Negative right knee. Kellgren-Nicolas Classification: grade 0 (none): definite absence of x-ray hung nges of osteoarthritis
--- NOTE | 2024-11-16 13:10 | XR_ITS ---
WS: [email or web address] Lumbar spine, 7 views including both obliques and lateral views in flexion, extension and neutral pos ition, 11/16/2024 Clinical Data: low back pain Comparison: None. Findings: No compression fractures or subluxation is seen. No disc space narrowing is seen. The transverse proc esses and SI joints are normal. There is a slight dextroscoliosis of the lumbar spine. The oblique films show no spondylolysis. On flexion and extension there is no instability. The abdomi nal aorta shows calcification but no aneurysm. XR/XR lumbar spine 6V w f/e [id number] Impression: 1. Minimal dextroscoliosis of the lumbar spine. 2. Negative for spondylolysis on oblique films. 3. No instability on flexion or extension.
--- NOTE | 2024-11-16 13:11 | XR_ITS ---
WS: [id number] Cervical spine, 5 views including both obliques Clinical Data: neck pain Comparison: None. Findings: No compression fractures are seen. The disc heights are normal. There is no prevertebral so ft tissue swelling. The odontoid is unremarkable. There is facet joint arthritis bilaterally from C4- C6. The soft tissues of the neck and the lung apices are normal. The oblique films show no foraminal encroachment. XR/XR cervical spine 4-5V [id number] Impression: 1. C4-C6 bilateral facet joint arthritis. 2. The oblique films demonstrate no foraminal encroachment.
== END 2024-11-16 12:28 | disposition home or self-care (01) ==
PROVIDERS: PCP Nurse Practitioner; Visit Provider Family Medicine
DX: M25.562 Pain in left knee (principal); M25.561 Pain in right knee; M47.892 Other spondylosis, cervical region; I70.0 Atherosclerosis of aorta; M54.50 Low back pain, unspecified
CPT/HCPCS: 72050; 72114; 73562